=== PATIENT | male | born 1965 | race Caucasian/White ===

== ENCOUNTER 2016-08-16 09:22 | Day surgery (SDC) | payer BC ==
[~2016-08-16] VITALS: Ht 170.2 cm; Wt 75.8 kg
== END 2016-08-16 11:25 | disposition short-term general hospital (02) ==
LOC: SURGOP 09:22
PROC: 0DBP8ZZ Excision of Rectum, Via Natural or Artificial Opening Endoscopic (ICD-10-PCS; principal; 2016-08-16)
DX: Z12.11 Encounter for screening for malignant neoplasm of colon (principal); K62.1 Rectal polyp; Z88.1 Allergy status to other antibiotic agents; Z90.89 Acquired absence of other organs; Z98.890 Other specified postprocedural states
CPT/HCPCS: J2175; J2250